=== PATIENT | female | born 1990 ===

== ENCOUNTER 2021-01-11 12:00 | Inpatient (IN) | payer OTHER ==
[~2021-01-11] VITALS: Ht 172.7 cm; Wt 87.1 kg
[2021-01-19] MEDS ORDERED: PRENATAL + DHA1 EAC1 (06:33)
== END 2021-01-21 15:54 | disposition home or self-care (01) | DRG 807 ==
LOC: OB/GYN 01-19 05:43 → LDR 01-19 05:43 → OB/GYN 01-19 14:13 → SURH 01-23 12:00
PROVIDERS: ADMIT Obstetrics & Gynecology; ATTEND Obstetrics & Gynecology
PROC: 10E0XZZ Delivery of Products of Conception, External Approach (ICD-10-PCS; principal; 2021-01-19)
PROC: 0W8NXZZ Division of Female Perineum, External Approach (ICD-10-PCS; 2021-01-19)
PROC: 4A1HXFZ Monitoring of Products of Conception, Cardiac Rhythm, External Approach (ICD-10-PCS; 2021-01-19)
DX: O80 Encounter for full-term uncomplicated delivery (principal); Z37.0 Single live birth; Z3A.39 39 weeks gestation of pregnancy